=== PATIENT | male | born 1930 | race Caucasian/White ===

== ENCOUNTER 2017-10-16 19:44 | Emergency (ER) | payer MEDICARE, OTHER ==
[2017-10-16 22:35] LABS: ABSOLUTE BASOPHILS # (AUTO) 0.1 10^3/uL (0.0-0.2); ABSOLUTE EOSINOPHILS # (AUTO) 0.1 10^3/uL (0.0-0.6); ABSOLUTE MONOCYTES (AUTO) 0.8 10^3/uL (0.1-1.4); ABSOLUTE NEUT (AUTO) 7.8 10^3/uL (1.7-8.2); BASOPHILS % (AUTO) 0.7 % (0-2); EOSINOPHILS % (AUTO) 0.8 % (0-6); HEMATOCRIT 31.4 % (37.9-51.0); HEMOGLOBIN 10.5 g/dL (13.5-17.0); LYMPHOCYTES % (AUTO) 10.2 % (13-45); MEAN CORPUSCULAR HEMOGLOBIN 32.3 pg (27.0-33.4); MEAN CORPUSCULAR HGB CONC 33.4 g/dL (32.0-36.0); MEAN CORPUSCULAR VOLUME 97 fl (80-97); MONOCYTES % (AUTO) 8.6 % (3-13); PLATELET COUNT 236 10^3/uL (150-450); RED BLOOD COUNT 3.24 10^6/uL (4.35-5.55); RED CELL DISTRIBUTION WIDTH 16.4 % (11.5-14.0); SEGMENTED NEUTROPHILS % (AUTO) 79.7 % (42-78); TOTAL CELLS COUNTED % (AUTO) 100 %; WHITE BLOOD COUNT 9.7 10^3/uL (4.0-10.5)
[2017-10-16 22:41] LABS: INTERNATIONAL RATION (INR) 1.11; PROTHROMBIN TIME 14.9 SEC (11.4-15.4)
[2017-10-16 22:42] LABS: PARTIAL THROMBOPLASTIN TIME 33.1 SEC (23.5-35.8)
--- NOTE | 2017-10-16 23:32 | ER Document Report ---
ED GI/ - General Mode of Arrival: Ambulatory Information source: Patient TRAVEL OUTSIDE OF THE [place] IN LAST 30 DAYS: No <TAWNY CHENG - Last Filed: 10/16/17 23:42> <KELSY CARLTON - Last Filed: 10/17/17 02:57> - General Chief Complaint: Blood in Catheter Stated Complaint: CATHETER PROBLEM Time Seen by Provider: 10/16/17 23:26 Notes: 86-year-old male who presents to the emergency department today with complaints of a clogged Cox catheter. Patient states he has more blood in his Cox bag than he normally does. Patient states he feels like his bladder is full but it is not draining. There is no urine in the cox bag. Patient complains of a sensation that his bladder is full. (TAWNY CHENG) - Related Data Allergies/Adverse Reactions: No Known Allergies Allergy (Verified 08/31/14 20:01) Past Medical History - General Information source: Patient - Social History Smoking Status: Former Smoker Cigarette use (# per day): No Chew tobacco use (# tins/day): No Frequency of alcohol use: None Drug Abuse: None Lives with: Family Family History: Reviewed & Not Pertinent Patient has suicidal ideation: No Patient has homicidal ideation: No - Past Medical History Cardiac Medical History: Reports: Hx Atrial Fibrillation, Hx Congestive Heart Failure, Hx Coronary Artery Disease, Hx Hypercholesterolemia, Hx Hypertension Pulmonary Medical History: Reports: Hx Asthma - OCC WHEEZE Endocrine Medical History: Reports: Hx Hypothyroidism Musculoskeletal Medical History: Reports Hx Arthritis Psychiatric Medical History: Reports: Hx Anxiety - Reported by patient Past Surgical History: Reports: Hx Cardiac Catheterization, Hx Cardiac Surgery - Bypass and Valve replacement, Hx Open Heart Surgery - CABG AND BOVINE HEART VALVE, Hx Orthopedic Surgery - Bilateral total knee replacement - Immunizations Hx Diphtheria, Pertussis, Tetanus Vaccination: Yes <TAWNY CHENG - Last Filed: 10/16/17 23:42> Review of Systems - Review of Systems Constitutional: No symptoms reported EENT: No symptoms reported Cardiovascular: No symptoms reported Respiratory: No symptoms reported Gastrointestinal: No symptoms reported Genitourinary: See HPI, Retention - cox cath clogged Male Genitourinary: No symptoms reported Musculoskeletal: No symptoms reported Skin: No symptoms reported Hematologic/Lymphatic: No symptoms reported Neurological/Psychological: No symptoms reported -: Yes All other systems reviewed and negative <TAWNY CHENG - Last Filed: 10/16/17 23:42> Physical Exam <TAWNY CHENG - Last Filed: 10/16/17 23:42> <KELSY CARLTON - Last Filed: 10/17/17 02:57> - Vital signs Vitals: Temp Pulse Resp BP Pulse Ox 97.9 F 77 18 114/51 L 97 10/16/17 20:38 10/16/17 20:38 10/16/17 20:38 10/16/17 20:38 10/16/17 20:38 - Notes Notes: Physical Exam: General: Alert, appears well. HEENT: Normocephalic. Atraumatic. PERRL. Extraocular movements intact. Oropharynx clear. Neck: Supple. Non-tender. Respiratory: No respiratory distress. Clear and equal breath sounds bilaterally. Cardiovascular: Irregularly irregular rhythm, regular rate. Systolic murmur best heard over the aortic valve. Abdominal: Mild suprapubic fullness and tenderness with palpation. Large amounts of blood in Cox bag at bedside. Normal Bowel Sounds. Back: Non-tender. No deformity or step off. Extremities: Moves all four extremities. Upper extremities: Normal inspection. Normal ROM. Lower extremities: Normal inspection. No edema. Normal ROM. Neurological: Normal cognition. AAOx4. Normal speech. Psychological: Normal affect. Normal Mood. Skin: Warm. Dry. Normal color. (TAWNY CHENG) Course - Laboratory Result Diagrams: 10/16/17 22:30 <TAWNY CHENG - Last Filed: 10/16/17 23:42> - Laboratory Result Diagrams: 10/16/17 22:30 <KELSY CARLTON - Last Filed: 10/17/17 02:57> - Vital Signs Vital signs: Temp Pulse Resp BP Pulse Ox 97.9 F 77 18 114/51 L 97 10/16/17 20:38 10/16/17 20:38 10/16/17 20:38 10/16/17 20:38 10/16/17 20:38 - Laboratory Laboratory results interpreted by me: 10/16/17 10/17/17 22:30 01:32 RBC 3.24 L Hgb 10.5 L Hct 31.4 L RDW 16.4 H Seg Neutrophils % 79.7 H Lymphocytes % 10.2 L Urine Protein 100 H Urine Blood LARGE H Ur Leukocyte Esterase SMALL H Discharge <TAWNY CHENG - Last Filed: 10/16/17 23:42> <KELSY CARLTON - Last Filed: 10/17/17 02:57> - Discharge Clinical Impression: Encounter for Cox catheter replacement Obstructed Cox catheter Qualifiers: Encounter type: initial encounter Qualified Code(s): T83.091A - Other mechanical complication of indwelling urethral catheter, initial encounter Urinary tract infection Qualifiers: Urinary tract infection type: catheter-associated UTI Indwelling urinary catheter type: indwelling urethral catheter Encounter type: initial encounter Qualified Code(s): T83.511A - Infection and inflammatory reaction due to indwelling urethral catheter, initial encounter; N39.0 - Urinary tract infection , site not specified; N39.0 - Urinary tract infection, site not specified Hematuria Qualifiers: Hematuria type: gross Qualified Code(s): R31.0 - Gross hematuria Condition: Stable Disposition: HOME, SELF-CARE Additional Instructions: Take medication as prescribed for your urinary tract infection. Drink plenty of fluids to help flush the bladder and prevent the catheter from becoming obstructed. Follow-up with your doctor Thursday or Thursday to check on the urine culture. RETURN TO THE EMERGENCY ROOM IF ANY NEW OR WORSENING SYMPTOMS. Prescriptions: Sulfamethoxazole/Trimethoprim [Septra-Ds 800-160 mg Tablet] 1 tab PO BID #14 tablet Referrals: FABIENNE GARCIA MD [Primary Care Provider] - Follow up as needed Scribe Attestation: 10/16/17 23:54 I personally performed the services described in the documentation, reviewed and edited the documentation which was dictated to the scribe in my presence, and it accurately records my words and actions. (KELSY CARLTON) Scribe Documentation - Scribe Written by Triny:: Triny Leo, 10/16/2017 [id number] acting as scribe for :: Reece <TAWNY CHENG - Last Filed: 10/16/17 23:42>
[2017-10-17 02:03] LABS: APPEARANCE,URINE CLOUDY; BILIRUBIN,URINE NEGATIVE (NEGATIVE); COLOR,URINE RED; GLUCOSE, URINE NEGATIVE (NEGATIVE); KETONES,URINE NEGATIVE (NEGATIVE); LEUKOCYTE ESTERASE,URINE SMALL (NEGATIVE); NITRITE,URINE NEGATIVE (NEGATIVE); PROTEIN,URINE 100 mg/dL (NEGATIVE); URINE SPECIFIC GRAVITY 1.005; UROBILINOGEN,URINE NEGATIVE mg/dL (<2.0)
[2017-10-17] MEDS ORDERED: SULFAMETHOXAZOLE/TRIMETHOPRIM 800-160 MG TABLET PO ONE (02:50)
[2017-10-17 03:27] VITALS: BP 107/65
== END 2017-10-17 03:24 | disposition home or self-care (01) ==
LOC: ER 19:44
DX: T83.511A Infection and inflammatory reaction due to indwelling urethral catheter, initial encounter (principal); T83.091A Other mechanical complication of indwelling urethral catheter, initial encounter; N39.0 Urinary tract infection, site not specified; R31.9 Hematuria, unspecified; Z87.891 Personal history of nicotine dependence; I25.10 Atherosclerotic heart disease of native coronary artery without angina pectoris; I10 Essential (primary) hypertension; J45.909 Unspecified asthma, uncomplicated
CPT/HCPCS: 99283; 51702; 36415; 87086; 85025; 85610; 85730; 81001; A9270

== ENCOUNTER 2018-05-26 12:42 | Emergency (ER) | payer MEDICARE, OTHER ==
--- NOTE | 2018-05-26 13:19 | RADIOLOGY REPORT (SQ) ---
EXAM DESCRIPTION: ELBOW LEFT OVER 2 VIEWS COMPLETED DATE/TIME: 05/26/2018 1:10 pm REASON FOR STUDY: fall COMPARISON: None. NUMBER OF VIEWS: Four views. TECHNIQUE: AP, lateral, and both oblique radiographic images acquired of the left elbow. LIMITATIONS: None. FINDINGS: MINERALIZATION: Normal. BONES: No acute fracture or dislocation. No worrisome bone lesions. JOINT: No effusion. SOFT TISSUES: No soft tissue swelling. No foreign body. OTHER: No other significant finding. IMPRESSION: NEGATIVE STUDY OF THE LEFT ELBOW. NO RADIOGRAPHIC EVIDENCE OF ACUTE INJURY. TECHNICAL DOCUMENTATION: JOB ID: [id number] [employer]- All Rights Reserved Reading location - IP/workstation name: [email or web address]
--- NOTE | 2018-05-26 13:36 | RADIOLOGY REPORT (SQ) ---
EXAM DESCRIPTION: CT HEAD WITHOUT COMPLETED DATE/TIME: 05/26/2018 1:25 pm REASON FOR STUDY: fell and on blood thinners COMPARISON: 08/31/2014 TECHNIQUE: Axial images acquired through the brain without intravenous contrast. Images reviewed wi th bone, brain and subdural windows. Additional sagittal and coronal reconstructions were generated. Images stored on PACS. All CT scanners at this facility use dose modulation, iterative reconstruction, and/or weight based d osing when appropriate to reduce radiation dose to as low as reasonably achievable (ALARA). [facility]: Dose Right [facility]: CareDose [facility]: Dose Right [facility]: Teradose 4D [facility]: [employer] RADIATION DOSE: CT Rad equipment meets quality standard of care and radiation dose reduction techniq ues were employed. CTDIvol: 53.2 mGy. DLP: 1044 mGy-cm.mGy. LIMITATIONS: None. FINDINGS: VENTRICLES: Prominent. CEREBRUM: No masses. No hemorrhage. No midline shift. Stable areas of low density in the white mat ter most likely due to chronic micro-vascular ischemic change. No evidence for acute infarction. CEREBELLUM: No masses. No hemorrhage. No alteration of density. No evidence for acute infarction. EXTRAAXIAL SPACES: Age-related involutional change. No fluid collections. No masses. ORBITS AND GLOBE: No intra- or extraconal masses. Normal contour of globe without masses. CALVARIUM: No fracture. PARANASAL SINUSES: No fluid or mucosal thickening. SOFT TISSUES: Mild right frontal soft tissue swelling. OTHER: No other significant finding. IMPRESSION: Right frontal soft tissue swelling without evidence of acute intracranial process or fra cture. 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 EVIDENCE OF ACUTE STROKE: NO. TECHNICAL DOCUMENTATION: JOB ID: [id number] Quality ID # [id number]: Final reports with documentation of one or more dose reduction techniques (e.g., Au tomated exposure control, adjustment of the mA and/or kV according to patient size, use of iterative reconstruction technique) 2010 [employer]- All Rights Reserved Reading location - IP/workstation name: [email or web address]
--- NOTE | 2018-05-26 14:10 | ER Document Report ---
ED General - General Chief Complaint: Fall Stated Complaint: FALL,HEAD INJURY Time Seen by Provider: 05/26/18 14:07 Primary Care Provider: FABIENNE GARCIA MD [Primary Care Provider] - Follow up as needed Notes: Patient is a 87-year-old male with A. fib on Eliquis that presents to the emergency department for chief complaint of fall with head injury. Patient states that around 11:00 today, he was carrying 2 cups of coffee, when he was walking into the living room he tripped over his own feet onto the carpet, and fell and hit his left elbow and struck his right forehead. He did not lose consciousness., Denies having a headache at this time, denies any neck pain, denies any numbness, weakness or tingling in any extremity. He also denies having any chest pain. He states that he does have some mild aching pain in his left elbow, describes it as a 1 out of 10 at this time. Past Medical History: Hypertension, atrial fibrillation, sick sinus syndrome status post pacemaker Past Surgical History: CABG, pacemaker, knee surgery, shoulder surgery Social History: Former smoker, denies alcohol or drug use. Family History: Reviewed and noncontributory for presenting illness Allergies: Reviewed, see documented allergy list. REVIEW OF SYSTEMS: Other than noted above, the 12 point review of systems was reviewed with the patient and were negative, all pertinent findings are included in the HPI. PHYSICAL EXAMINATION: Vital signs reviewed, nursing noted reviewed. GENERAL: Well-appearing, well-nourished and in no acute distress. HEAD: Superficial abrasion to the right forehead, no active bleeding at this time, no deep lacerations. No crepitus or evidence of depressed skull fracture. EYES: Eyes appear normal, extraocular movements intact, sclera anicteric, conjunctiva are normal. PERRLA ENT: nares patent, oropharynx clear without exudates. Moist mucous membranes. No septal hematomas, or nasal bridge tenderness NECK: Normal range of motion, supple without lymphadenopathy, no midline tend erness, normal range of motion without pain LUNGS: Breath sounds clear to auscultation bilaterally and equal. No wheezes rales or rhonchi. HEART: Heart rate bradycardic, regular rhythm ABDOMEN: Soft, nontender, normoactive bowel sounds. No rebound, guarding, or rigidity. No masses appreciated. EXTREMITIES: Skin tears noted to the left elbow, no active bleeding, good range of motion of all extremities, without difficulty or pain, the elbow is not effused, or particularly tender to palpate. The rest of his extremity exam is grossly unremarkable, mild edema distally in lower extremities. NEUROLOGICAL: No focal neurological deficits. Moves all extremities spontaneously Motor and sensory grossly intact on exam. PSYCH: Normal mood, normal affect. SKIN: Warm, Dry, normal turgor, no rashes or lesions noted on exposed skin TRAVEL OUTSIDE OF THE [place] IN LAST 30 DAYS: No - Related Data Allergies/Adverse Reactions: No Known Allergies Allergy (Verified 08/31/14 20:01) Past Medical History - Social History Smoking Status: Unknown if Ever Smoked Family History: Reviewed & Not Pertinent Patient has suicidal ideation: No Patient has homicidal ideation: No - Past Medical History Cardiac Medical History: Reports: Hx Atrial Fibrillation, Hx Congestive Heart Failure, Hx Coronary Artery Disease, Hx Hypercholesterolemia, Hx Hypertension Denies: Hx Heart Attack Pulmonary Medical History: Reports: Hx Asthma - OCC WHEEZE Denies: Hx COPD Neurological Medical History: Denies: Hx Cerebrovascular Accident, Hx Seizures Endocrine Medical History: Reports: Hx Hypothyroidism Renal/ Medical History: Denies: Hx Peritoneal Dialysis GI Medical History: Denies: Hx Hepatitis, Hx Hiatal Hernia, Hx Ulcer Musculoskeletal Medical History: Reports Hx Arthritis Psychiatric Medical History: Reports: Hx Anxiety - Reported by patient Infectious Medical History: Denies: Hx Hepatitis Past Surgical History: Reports: Hx Cardiac Catheterization, Hx Cardiac Surgery - Bypass and Valve replacement, Hx Open Heart Surgery - CABG AND BOVINE HEART VALVE, Hx Orthopedic Surgery - Bilateral total knee replacement. Denies: Hx Pacemaker - Immunizations Hx Diphtheria, Pertussis, Tetanus Vaccination: Yes Physical Exam - Vital signs Vitals: Temp Pulse Resp BP Pulse Ox 97.3 F 51 L 18 142/90 H 98 05/26/18 12:55 05/26/18 12:55 05/26/18 12:55 05/26/18 12:55 05/26/18 12:55 Course - Re-evaluation Re-evalutation: Patient seen and examined vital signs reviewed. Laboratory data and/or imaging were ordered as appropriate for the patient's presenting symptoms and complaint, with consideration of any critical or life threatening conditions that may be associated with their obtained history and exam as noted above. Patient was treated with wound care Results were reviewed when available and demonstrated negative CT imaging, negative x-rays of the elbow. The patient was re-evaluated and was stable, was able to ambulate in the ED Evaluation was most consistent with closed head injury, scalp abrasion, skin tear to left elbow Results were discussed with the patient at this point, after careful consideration I feel that that patient can be discharged from the emergency department, the patient was educated treatments and reasons to return to the emergency department based on their presumed diagnosis as noted above, they were advised to followup with a primary care physician in 2-3 days. Patient was agreeable to plan of care. *Note is created using voice recognition software and may contain spelling, syntax or grammatical errors. Elbow X-Ray 05/26/18 00:00 IMPRESSION: NEGATIVE STUDY OF THE LEFT ELBOW. NO RADIOGRAPHIC EVIDENCE OF ACUTE INJURY. Head CT 05/26/18 00:00 IMPRESSION: Right frontal soft tissue swelling without evidence of acute intracranial process or fracture. Stable chronic changes of parenchymal atrophy and white matter change, likely sequelae of microangiopathic disease. EVIDENCE OF ACUTE STROKE: NO. - Vital Signs Vital signs: Temp Pulse Resp BP Pulse Ox 97.3 F 51 L 18 142/90 H 98 05/26/18 12:55 05/26/18 12:55 05/26/18 12:55 05/26/18 12:55 05/26/18 12:55 Discharge - Discharge Clinical Impression: Closed head injury Qualifiers: Encounter type: initial encounter Qualified Code(s): S09.90XA - Unspecified injury of head, initial encounter Condition: Stable Disposition: HOME, SELF-CARE Instructions: Head Injury Precautions ([facility]) Additional Instructions: Please apply triple antibiotic to your forehead, and left elbow wounds, he can do this once or twice daily for the next 7 days. Monitor for signs of infection such as increased redness, swelling or drainage of pus. Referrals: FABIENNE GARCIA MD [Primary Care Provider] - Follow up in 3-5 days
[2018-05-26 14:59] VITALS: BP 137/75
== END 2018-05-26 14:59 | disposition home or self-care (01) ==
LOC: ER 12:42
DX: S09.90XA Unspecified injury of head, initial encounter (principal); S00.01XA Abrasion of scalp, initial encounter; S50.312A Abrasion of left elbow, initial encounter; W01.0XXA Fall on same level from slipping, tripping and stumbling without subsequent striking against object, initial encounter; Y92.008 Other place in unspecified non-institutional (private) residence as the place of occurrence of the external cause; I11.0 Hypertensive heart disease with heart failure; I50.9 Heart failure, unspecified; I48.91 Unspecified atrial fibrillation; Z95.0 Presence of cardiac pacemaker; Z95.1 Presence of aortocoronary bypass graft; Z95.3 Presence of xenogenic heart valve
CPT/HCPCS: 70450; 99284